=== PATIENT | male | born 1990 | race Caucasian/White ===

== ENCOUNTER → 2018-03-12 17:45 | Outpatient (CLI) | payer SELFPAY ==
[2018-03-12 23:00] LABS: Chlamydia Trachomatis by PCR POSITIVE (Negative); Neisserai gonorrhoeae by PCR Negative (Negative); Probe Check PASS; Sample Adequacy Control PASS; Specimen Processing Control PASS
== END ==
PROVIDERS: Visit Provider Physician Assistant
DX: R30.0 Dysuria (principal)
CPT/HCPCS: 87491; 87591